=== PATIENT | female | born 1940 | race Caucasian/White ===

== ENCOUNTER 2019-10-09 19:56 | Emergency (ER) | payer MEDICARE, OTHER ==
[~2019-10-09] VITALS: Ht 154.9 cm; Wt 87.6 kg
--- NOTE | 2019-10-09 20:21 | ED Cardiac General ---
History of Present Illness General Chief Complaint: Cardiac/General Problems Stated Complaint: URINARY PROBLEMS History of Present Illness Date Seen by Provider: Oct 09, 2019 Time Seen by Provider: 20:19 Initial Comments This patient is a 79-year-old female presents to the emergency from her increasing weight gain and not feeling well for the past few days. Patient states that starting on August where she thought she was having flulike symptoms but had no fever no cough no congestion. Patient was seen by her PCP due to increasing lower extremity swelling stated she had a normal EKG and he placed her on Lasix but she does continue to have weight gain. Patient denies chest pain. Denies cough denies any significant shortness of breath. Patient states she is fatigued. We'll do medical evaluation treatment is needed. Patient states she believes she is gained about 30 pounds in a month. Patient has 4+ edema to the lower extremities. Timing/Duration: getting worse Modifying Factors: worse with antacids, worse with breathing, worse with coughing, worse with defecting, worse with eating, worse with exercise; improves with lying down; worse with morphine, worse with movement, worse with nitroglycerin, worse with oxygen, worse with palpation, worse with rest, worse with other Allergies and Home Medications Allergies Coded Allergies: Sulfa (Sulfonamide Antibiotics) (Verified Allergy, Unknown, 10/09/19) atorvastatin (Verified Allergy, Unknown, 10/09/19) diltiazem (Verified Allergy, Unknown, 10/09/19) ibuprofen (Verified Allergy, Unknown, 10/09/19) lisinopril (Verified Allergy, Unknown, 10/09/19) losartan (Verified Allergy, Unknown, 10/09/19) hydrocodone (Verified Adverse Reaction, Unknown, 10/09/19) Patient Home Medication List Home Medication List Reviewed: Yes Review of Systems Review of Systems Constitutional: no symptoms reported, see HPI; No chills, No diaphoresis, No dizziness, No fever, No malaise, No weakness, No weight gain, No weight loss, No other EENTM: No No Symptoms Reported, No See HPI, No Blurred Vision, No Double Vi lily, No Eye Pain, No Eye Tearing, No Ear Drainage, No Ear Pain, No Mouth Pain, No Mouth Swelling, No Nose Congestion, No Nose Pain, No Throat Pain, No Throat Swelling, No Other Respiratory: No Symptoms Reported, See HPI; Denies Cough; Orthopnea; Denies Shortness of Air; SOA With Exertion; Denies SOA at Rest, Denies Stridor, Denies Wheezing, Denies Other Cardiovascular: Denies No Symptoms Reported, Denies See HPI, Denies Chest Pain, Denies Edema, Denies Irregular Heart Rate, Denies Lightheadedness, Denies Palpitations, Denies Syncope, Denies Other Gastrointestinal: Denies No Symptoms Reported, Denies See HPI, Denies Abdomen Distended, Denies Abdominal Pain, Denies Blood Streaked Stools, Denies Constipated, Denies Diarrhea, Denies Difficulty Swallowing, Denies Nausea, Denies Poor Appetite, Denies Poor Fluid Intake, Denies Rectal Bleeding, Denies Vomiting, Denies Other Genitourinary: Denies No Symptoms Reported, Denies See HPI, Denies Burning, Denies Discharge, Denies Drainage, Denies Frequency, Denies Flank Pain, Denies Hematuria, Denies Incontinence, Denies Pain, Denies Urgency, Denies Other Musculoskeletal: No no symptoms reported, No see HPI, No back pain, No gout, No joint pain, No joint swelling, No muscle pain, No muscle stiffness, No muscle cramps, No muscle twitching, No muscle weakness, No neck pain, No other All Other Systems Reviewed Negative Unless Noted: Yes Past Bkdhbps-Bbzhlr-Ogurxz Hx Patient Social History Recent Foreign Travel: No Contact w/Someone Who Travel: No Physical Exam Vital Signs Vital Signs - First Documented 10/09/19 20:00 Temp 36.7 Pulse 70 Resp 16 B/P (MAP) 161/90 (113) Pulse Ox 98 O2 Delivery Room Air Capillary Refill : Height, Weight, BMI Height: '" Weight: lbs. oz. kg; BMI Method: General Appearance: No Apparent Distress, WD/WN HEENT: PERRL/EOMI, TMs Normal, Normal ENT Inspection, Pharynx Normal Neck: Full Range of Motion, Normal Inspection, Non Tender Respiratory: Chest Non Tender, Lungs Clear, Normal Breath Sounds, No Accessory Muscle Use, No Respiratory Distress Cardiovascular: Regular Rate, Rhythm, No Edema, No Gallop, No JVD, No Murmur, Normal Peripheral Pulses Extremity: Normal Capillary Refill, Normal Inspection, Normal Range of Motion, Non Tender, No Calf Tenderness, No Pedal Edema, Swelling Progress/Results/Core Measures Results/Orders Lab Results Laboratory Tests Test 10/09/19 20:30 10/09/19 20:37 Range/Units White Blood Count 9.7 4.3-11.0 10^3/uL Red Blood Count 4.55 4.35-5.85 10^6/uL Hemoglobin 14.6 11.5-16.0 G/DL Hematocrit 42 35-52 % Mean Corpuscular Volume 91 80-99 FL Mean Corpuscular Hemoglobin 32 25-34 PG Mean Corpuscular Hemoglobin Concent 35 32-36 G/DL Red Cell Distribution Width 12.7 10.0-14.5 % Platelet Count 189 130-400 10^3/uL Mean Platelet Volume 9.4 7.4-10.4 FL Neutrophils (%) (Auto) 81 H 42-75 % Lymphocytes (%) (Auto) 11 L 12-44 % Monocytes (%) (Auto) 5 0-12 % Eosinophils (%) (Auto) 1 0-10 % Basophils (%) (Auto) 1 0-10 % Neutrophils # (Auto) 7.9 H 1.8-7.8 X 10^3 Lymphocytes # (Auto) 1.1 1.0-4.0 X 10^3 Monocytes # (Auto) 0.5 0.0-1.0 X 10^3 Eosinophils # (Auto) 0.1 0.0-0.3 10^3/uL Basophils # (Auto) 0.1 0.0-0.1 10^3/uL Sodium Level 136 135-145 MMOL/L Potassium Level 4.6 3.6-5.0 MMOL/L Chloride Level 101 98-107 MMOL/L Carbon Dioxide Level 26 21-32 MMOL/L Anion Gap 9 5-14 MMOL/L Blood Urea Nitrogen 28 H 7-18 MG/DL Creatinine 1.38 H 0.60-1.30 MG/DL Estimat Glomerular Filtration Rate 37 BUN/Creatinine Ratio 20 Glucose Level 119 H 70-105 MG/DL Calcium Level 8.2 L 8.5-10.1 MG/DL Corrected Calcium 9.8 8.5-10.1 MG/DL Total Bilirubin < 0.2 0.1-1.0 MG/DL Aspartate Amino Transf (AST/SGOT) 23 5-34 U/L Alanine Aminotransferase (ALT/SGPT) 20 0-55 U/L Alkaline Phosphatase 71 40-136 U/L Troponin I < 0.30 <0.30 NG/ML Pro-B-Type Natriuretic Peptide 874.9 H <75.0 PG/ML Total Protein 5.2 L 6.4-8.2 GM/DL Albumin 2.0 L 3.2-4.5 GM/DL My Orders Orders - JUSTICE FISHER MD Chest 1 View Ap/Pa Only (10/09/19 20:14) Ekg Tracing (10/09/19 20:14) Ed Iv/Invasive Line Start (10/09/19 20:14) Monitor-Rhythm Ecg Trace Only (10/09/19 20:14) Comprehensive Metabolic Panel (10/09/19 20:14) Cbc With Automated Diff (10/09/19 20:14) Troponin I Fs (10/09/19 20:14) Probnp Fs (10/09/19 20:19) Albuterol/Ipra Inhalation Soln (Duoneb I (10/09/19 21:45) Ceftriaxone For Iv Use (Rocephin For I (10/09/19 21:45) Svn Small Volume Nebulizer (10/09/19 21:40) Creatine Kinase Mb (10/09/19 20:30) Ondansetron Injection (Zofran Injectio (10/09/19 22:00) Acetaminophen Tablet/Caplet (Tylenol T (10/09/19 22:00) Medications Given in ED Current Medications Medications Dose Ordered Sig/Rebeca Route Start Time Stop Time Status Last Admin Dose Admin Acetaminophen 650 mg ONCE ONCE PO 10/09/19 22:00 10/09/19 22:01 DC 10/09/19 21:58 650 MG Albuterol/ Ipratropium 3 ml ONCE ONCE INH 10/09/19 21:45 10/09/19 21:46 DC 10/09/19 21:48 3 ML Ceftriaxone Sodium 1000 mg/ Sterile Water 10 ml @ 200 mls/hr ONCE ONCE IV 10/09/19 21:45 10/09/19 21:47 DC 10/09/19 21:48 200 MLS/HR Ondansetron HCl 4 mg ONCE ONCE IVP 10/09/19 22:00 10/09/19 22:01 DC 10/09/19 21:58 4 MG Vital Signs/I&O 10/09/19 20:00 Temp 36.7 Pulse 70 Resp 16 B/P (MAP) 161/90 (113) Pulse Ox 98 O2 Delivery Room Air Progress Progress Note : Time: 22:22 Progress Note Negative for any acute cardiac findings. Chest x-ray suggestive of possible developing a lower lobe pneumonia. Patient feeling was present better after breathing treatment. Vital signs are stable. Blood pressure is much improved down to 101/72. Patient will was given a dose of Rocephin in the emerge from was started on Zithromax patient is to continue all home medications and follow up with her PCP. We'll also give patient Pro Air puff inhaler. Patient states understanding should be discharged Initial ECG Impression Date: Oct 09, 2019 Initial ECG Impression Time: 20:20 Initial ECG Rate: 70 Initial ECG Rhythm: Normal Sinus Initial ECG Intervals: Normal Initial ECG Impression: Normal, Nonspecific Changes Initial ECG Comparisson: No Previous ECG Available Departure Impression Primary Impression: Pneumonia Additional Impression: Swelling of lower extremity Disposition: HOME, SELF-CARE Condition: Stable Departure-Patient Inst. Decision time for Depature: 22:23 Referrals: NO,LOCAL PHYSICIAN (PCP) Primary Care Physician Patient Instructions: Pneumonia, Adult (DC) Add. Discharge Instructions: Cool mist humidified air. Finish all medications as prescribed. Elevate lower extremities to help reduce swelling continue chronic medications. Zithromax is prescribed for pneumonia. Pro Air puff inhaler as instructed. Follow-up with PCP in 2-3 days. All discharge instructions reviewed with patient and/or family. Voiced understanding. Scripts Albuterol Sulfate (Proventil Hfa) 6.7 Gm Hfa.aer.ad 2 PUFF INH Q6H for SHORTNESS OF BREATH for 7 Days, #1 EACH 0 Refills Prov: JUSTICE FISHER MD 10/09/19 Azithromycin (Zithromax) 250 Mg Tablet 250 MG PO UD, #6 TAB TAKE 2 TABLETS TODAY, THEN TAKE 1 TABLET DAILY FOR 4 MORE DAYS Prov: JUSTICE FISHER MD 10/09/19 JUSTICE FISHER MD Oct 09, 2019 20:21
[2019-10-09 20:44] LABS: HEMATOCRIT 42 % (35-52); HEMOGLOBIN 14.6 G/DL (11.5-16.0); MEAN CORPUSCULAR HEMOGLOBIN 32 PG (25-34); MEAN CORPUSCULAR HGB CONC 35 G/DL (32-36); MEAN CORPUSCULAR VOLUME 91 FL (80-99); MEAN PLATELET VOLUME 9.4 FL (7.4-10.4); PLATELET COUNT 189 10^3/uL (130-400); RED CELL DISTRIBUTION WIDTH 12.7 % (10.0-14.5); WHITE BLOOD COUNT 9.7 10^3/uL (4.3-11.0)
[2019-10-09 20:45] LABS: BASOPHILS # (AUTO) 0.1 10^3/uL (0.0-0.1); BASOPHILS % (AUTO) 1 % (0-10); EOSINOPHILS # (AUTO) 0.1 10^3/uL (0.0-0.3); EOSINOPHILS % (AUTO) 1 % (0-10); LYMPHOCYTES # (AUTO) 1.1 X 10^3 (1.0-4.0); LYMPHOCYTES % (AUTO) 11 % (12-44); MONOCYTES # (AUTO) 0.5 X 10^3 (0.0-1.0); MONOCYTES % (AUTO) 5 % (0-12); NEUTROPHILS # (AUTO) 7.9 X 10^3 (1.8-7.8); NEUTROPHILS % (AUTO) 81 % (42-75)
[2019-10-09 21:01] LABS: SODIUM 136 MMOL/L (135-145)
[2019-10-09 21:02] LABS: ALANINE AMINOTRANSFERASE 20 U/L (0-55); ALKALINE PHOSPHATASE 71 U/L (40-136); BILIRUBIN,TOTAL < 0.2 MG/DL (0.1-1.0); CALCIUM 8.2 MG/DL (8.5-10.1); CARBON DIOXIDE 26 MMOL/L (21-32); CHLORIDE 101 MMOL/L (98-107); GLUCOSE 119 MG/DL (70-105); POTASSIUM 4.6 MMOL/L (3.6-5.0); TOTAL PROTEIN 5.2 GM/DL (6.4-8.2)
[2019-10-09 21:03] LABS: BUN/CREATININE RATIO 20; CREATININE SERUM 1.38 MG/DL (0.60-1.30); GFR ESTIMATED 37
--- NOTE | 2019-10-09 21:24 | Diagnostic Imaging Report ---
EXAMINATION: Single view of the chest was obtained. INDICATION: Shortness of breath with hypertension and lower extremity swelling. FINDINGS: Heart size appears within normal limits for AP technique. The central pulmonary vascularity appears appropriate. There is no dense alveolar consolidation. There appears to be some patchy nodular infiltrate at the right base. Early developing pneumonia could not be excluded. This should be followed to resolution. There are no current findings to suggest significant edema or evidence of a significant effusion. IMPRESSION: 1. Apparent patchy nodular infiltrates at the right base. This may reflect developing pneumonia. This should be followed to resolution. 2. Heart size appears appropriate without current evidence of significant edema or failure. Dictated by: Dictated on workstation # [id number]
[2019-10-09] MEDS ORDERED: cefTRIAXone FOR IV USE 1,000 MG in WATER (STERILE) FOR INJECTION 10 ML IV ONE (21:45)
[2019-10-09] MEDS ORDERED: RT-ALBUTEROL/IPRATROPIUM 3 ML (DUONEB) VIAL INH ONE (21:45)
[2019-10-09] MEDS ORDERED: ACETAMINOPHEN 325 MG TABLET PO ONE (22:00)
[2019-10-09] MEDS ORDERED: ONDANSETRON 4 MG/2 ML (SDV) Z0FRAN IVP ONE (22:00)
[2019-10-09] MEDS ORDERED: AZIT250T PO (22:25)
[2019-10-09] MEDS ORDERED: RT-ALBUINH INH (22:25)
[2019-10-09 22:40] VITALS: BP 135/85
== END 2019-10-09 22:40 | disposition home or self-care (01) ==
LOC: EDUNIT# 19:56 → ER FS 20:01
DX: J18.9 Pneumonia, unspecified organism (principal); M79.89 Other specified soft tissue disorders; Z88.2 Allergy status to sulfonamides; Z88.8 Allergy status to other drugs, medicaments and biological substances; Z88.5 Allergy status to narcotic agent
CPT/HCPCS: 36415; 71045; 80053; 82553; 83880; 84484; 85025; 93005; 93041

== ENCOUNTER → 2021-04-03 | Outpatient (CLI) | payer MEDICARE, OTHER ==
[~2021-04-03] MED LIST: AZIT250T PO; RT-ALBUINH INH
--- NOTE | 2021-04-03 18:42 | Diagnostic Imaging Report ---
INDICATION: Left elbow pain COMPARISON: None available. TECHNIQUE: 3 radiographs of the left elbow dated 04/03/2021 FINDINGS: Tiny well-corticated calcifications are seen adjacent to the lateral epicondyle. No acute fracture or dislocation. No destructive osseous process. No elbow joint effusion. IMPRESSION: No acute osseous abnormality. Minimal calcifications adjacent to the lateral epicondyle felt to relate to a sequelae of prior lateral epicondylitis. Dictated by: Dictated on workstation # [id number]
== END ==
LOC: RAD FS 16:47
PROVIDERS: ATTEND Orthopaedic Surgery
DX: M25.522 Pain in left elbow (principal)
CPT/HCPCS: 73080

== ENCOUNTER 2021-11-27 09:59 | Emergency (ER) | payer MEDICARE, OTHER ==
[~2021-11-27] VITALS: Ht 157 cm; Wt 73.0 kg
--- NOTE | 2021-11-27 10:04 | ED GI ---
General Stated Complaint: NAUSEA History of Present Illness Date Seen by Provider: November 27, 2021 Time Seen by Provider: 10:03 Initial Comments 81-year-old female who presents with some generalized malaise, nausea. Patient reports that about a week ago she got GI bug had some nausea vomiting diarrhea. Both her and her got it. That he is gotten over it. However she is just cannot get over and continueto be run down. Patient had some mild nausea and felt like she needed to vomit but was unable to this morning. She is no longer having diarrhea. She denies any fever, chills, shortness of breath, chest pain. She does have some very minimal epigastric/upper abdomen pain just prior to when she is feels like she needs to vomit or vomits. Patient reports that she was tested for both COVID and influenza not last week and they were negative. She was seen in urgent care 3 days ago and given Zofran. She took a Zofran about 30 minutes prior to arrival Allergies and Home Medications Allergies Coded Allergies: Sulfa (Sulfonamide Antibiotics) (Verified Allergy, Unknown, 10/09/19) atorvastatin (Verified Allergy, Unknown, 10/09/19) diltiazem (Verified Allergy, Unknown, 10/09/19) ibuprofen (Verified Allergy, Unknown, 10/09/19) lisinopril (Verified Allergy, Unknown, 10/09/19) losartan (Verified Allergy, Unknown, 10/09/19) hydrocodone (Verified Adverse Reaction, Unknown, 10/09/19) Patient Home Medication List Home Medication List Reviewed: Yes Albuterol Sulfate (Proventil Hfa) 6.7 Gm Hfa.aer.ad, 2 PUFF INH Q6H Prescribed by: JUSTICE FISHER on 10/09/192224 Azithromycin (Zithromax) 250 Mg Tablet, 250 MG PO UD Prescribed by: JUSTICE FISHER on 10/09/192224 Cephalexin (Cephalexin) 500 Mg Tablet, 500 MG PO QID Prescribed by: CLARA TEE on 11/27/21 1127 Review of Systems Review of Systems Constitutional: No chills, No fever; malaise Respiratory: Denies Cough, Denies Shortness of Air Cardiovascular: Denies Chest Pain, Denies Lightheadedness Gastrointestinal: See HPI, Abdominal Pain (Minimal), Nausea, Vomiting Genitourinary: No Symptoms Reported Musculoskeletal: no symptoms reported Skin: no symptoms reported Psychiatric/Neurological: No Symptoms Reported Endocrine: No Symptoms Reported Hematologic/Lymphatic: No Symptoms Reported Past Dihtbkm-Zduupt-Mdoopy Hx Seasonal Allergies Seasonal Allergies: Yes Past Medical History Surgeries: Yes (NAVAL HERNIA REPAIR, BUNION SURGERY, KNEE REPLACEMENT) Gallbladder, Hysterectomy, Tonsillectomy Respiratory: Yes Asthma Cardiac: Yes Hypertension [employer] History: Hysterectomy Gastrointestinal: Yes Gall Bladder Disease Musculoskeletal: Yes Arthritis Endocrine: No Cancer: No Physical Exam Vital Signs Vital Signs - First Documented 11/27/21 10:21 Temp 36.2 Pulse 61 Resp 10 B/P (MAP) 115/59 (77) Pulse Ox 100 O2 Delivery Room Air Capillary Refill : Height/Weight/BMI Height: '" Weight: lbs. oz. kg; 36.00 BMI Method: General Appearance: WD/WN, no apparent distress Neck: full range of motion, supple Respiratory: normal breath sounds, no respiratory distress Cardiovascular: normal peripheral pulses, regular rate, rhythm, no edema Gastrointestinal: soft; No guarding, No rebound, No tenderness Neurologic/Psychiatric: no motor/sensory deficits, alert, normal mood/affect, oriented x 3 Skin: normal color, warm/dry Progress/Results/Core Measures Results/Orders Lab Results Laboratory Tests Test 11/27/21 10:06 11/27/21 10:11 Range/Units Urine Color YELLOW Urine Clarity SLIGHTLY CLOUDY Urine pH 6.0 5-9 Urine Specific Lee 1.015 L 1.016-1.022 Urine Protein NEGATIVE NEGATIVE Urine Glucose (UA) NEGATIVE NEGATIVE Urine Ketones NEGATIVE NEGATIVE Urine Nitrite NEGATIVE NEGATIVE Urine Bilirubin NEGATIVE NEGATIVE Urine Urobilinogen 0.2 < = 1.0 MG/DL Urine Leukocyte Esterase 2+ H NEGATIVE Urine RBC (Auto) NEGATIVE NEGATIVE Urine RBC NONE /HPF Urine WBC 10-25 H /HPF Urine Squamous Epithelial Cells 2-5 /HPF Urine Renal Epithelial Cells 0-2 /HPF Urine Crystals NONE /LPF Urine Bacteria FEW H /HPF Urine Casts NONE /LPF Urine Mucus NEGATIVE /LPF Urine Culture Indicated YES White Blood Count 6.3 4.3-11.0 10^3/uL Red Blood Count 4.55 3.80-5.11 10^6/uL Hemoglobin 14.2 11.5-16.0 g/dL Hematocrit 41 35-52 % Mean Corpuscular Volume 90 80-99 fL Mean Corpuscular Hemoglobin 31 25-34 pg Mean Corpuscular Hemoglobin Concent 35 32-36 g/dL Red Cell Distribution Width 12.7 10.0-14.5 % Platelet Count 169 130-400 10^3/uL Mean Platelet Volume 10.0 9.0-12.2 fL Immature Granulocyte % (Auto) 0 % Neutrophils (%) (Auto) 50 42-75 % Lymphocytes (%) (Auto) 38 12-44 % Monocytes (%) (Auto) 10 0-12 % Eosinophils (%) (Auto) 1 0-10 % Basophils (%) (Auto) 1 0-10 % Neutrophils # (Auto) 3.2 1.8-7.8 10^3/uL Lymphocytes # (Auto) 2.4 1.0-4.0 10^3/uL Monocytes # (Auto) 0.6 0.0-1.0 10^3/uL Eosinophils # (Auto) 0.1 0.0-0.3 10^3/uL Basophils # (Auto) 0.0 0.0-0.1 10^3/uL Immature Granulocyte # (Auto) 0.0 0.0-0.1 10^3/uL Neutrophils % (Manual) 53 % Lymphocytes % (Manual) 23 % Monocytes % (Manual) 9 % Eosinophils % (Manual) 2 % Basophils % (Manual) 1 % Band Neutrophils 2 % Atypical Lymphocytes 10 % Platelet Estimate NORMAL Blood Morphology Comment NORMAL Sodium Level 135 135-145 MMOL/L Potassium Level 4.5 3.6-5.0 MMOL/L Chloride Level 98 98-107 MMOL/L Carbon Dioxide Level 25 21-32 MMOL/L Anion Gap 12 5-14 MMOL/L Blood Urea Nitrogen 39 H 7-18 MG/DL Creatinine 1.55 H 0.60-1.30 MG/DL Estimat Glomerular Filtration Rate 34 BUN/Creatinine Ratio 25 Glucose Level 99 70-105 MG/DL Calcium Level 9.4 8.5-10.1 MG/DL Corrected Calcium 9.2 8.5-10.1 MG/DL Total Bilirubin 0.5 0.1-1.0 MG/DL Aspartate Amino Transf (AST/SGOT) 53 H 5-34 U/L Alanine Aminotransferase (ALT/SGPT) 125 H 0-55 U/L Alkaline Phosphatase 183 H 40-136 U/L C-Reactive Protein < 0.30 <0.50 MG/DL Total Protein 7.5 6.4-8.2 GM/DL Albumin 4.3 3.2-4.5 GM/DL Lipase 47 8-78 U/L My Orders Orders - CLARA TEE L DO Urinalysis (11/27/21 10:16) Acute Abd Series (11/27/21 10:20) Cbc With Automated Diff (11/27/21 10:20) Comprehensive Metabolic Panel (11/27/21 10:20) Lipase (11/27/21 10:20) Ua Culture If Indicated (11/27/21 10:20) Crp Fs (11/27/21 10:20) Metoclopramide Injection (Reglan Injecti (11/27/21 10:20) Lactated Ringers (Lr 1000 Ml Iv Solution (11/27/21 10:20) Manual Differential (11/27/21 10:11) Urine Culture (11/27/21 10:06) Vital Signs/I&O 11/27/21 10:21 Temp 36.2 Pulse 61 Resp 10 B/P (MAP) 115/59 (77) Pulse Ox 100 O2 Delivery Room Air Progress Progress Note : Progress Note Patient is feeling better following her IV fluids. Patient does have a urine that is consistent with an acute cystitis. She thought that she might have a UTI. X-ray shows mild constipation. Patient's labs show some mild elevated liver enzymes likely related to her recent gastroenteritis. She does not have any right upper quadrant pain upon palpation to indicate need for further urgent management. She should follow-up with her primary care provider if symptoms or not improving over the next couple days or continue to worsen. Patient stable a nd discharged home Diagnostic Imaging Diagonstic Imaging: Xray Plain Films/CT/US/NM/MRI: abdomen Comments Date of Exam:11/27/21 ACUTE ABD SERIES INDICATION: Nausea, vomiting, abdominal pain. COMPARISON: None. FINDINGS: Acute abdominal series demonstrates mild constipation without obstruction, ileus, or free air. The chest is normal. Thoracolumbar scoliosis is noted. Cholecystectomy clips are present. IMPRESSION: Mild constipation. Reviewed: Reviewed by Me, Reviewed/Discussed Departure Impression Primary Impression: Acute cystitis without hematuria Disposition: HOME, SELF-CARE Condition: Stable Departure-Patient Inst. Referrals: REMY OVALLE MD (PCP) Primary Care Physician Patient Instructions: Constipation, Adult (DC), Urinary Tract Infections in Adults Add. Discharge Instructions: Encourage you to drink plenty of fluid Use your already prescribed Zofran as Follow-up with your primary care provider and 5 to 7 days for recheck of your urine Scripts Cephalexin (Cephalexin) 500 Mg Tablet 500 MG PO QID, #20 TAB 0 Refills Prov: CLARA TEE DO 11/27/21 CLARA TEE DO November 27, 2021 10:04
[2021-11-27] MEDS ORDERED: METOCLOPRAMIDE INJ 10 MG/2 ML (REGLAN) IVP STA (10:20)
[2021-11-27] MEDS ORDERED: LACTATED RINGERS 1,000 ML IV STA (10:20)
[2021-11-27 10:26] LABS: BASOPHILS % (AUTO) 1 % (0-10); EOSINOPHILS # (AUTO) 0.1 10^3/uL (0.0-0.3); EOSINOPHILS % (AUTO) 1 % (0-10); HEMATOCRIT 41 % (35-52); HEMOGLOBIN 14.2 g/dL (11.5-16.0); LYMPHOCYTES # (AUTO) 2.4 10^3/uL (1.0-4.0); LYMPHOCYTES % (AUTO) 38 % (12-44); MEAN CORPUSCULAR HEMOGLOBIN 31 pg (25-34); MEAN CORPUSCULAR HGB CONC 35 g/dL (32-36); MEAN CORPUSCULAR VOLUME 90 fL (80-99); MONOCYTES # (AUTO) 0.6 10^3/uL (0.0-1.0); MONOCYTES % (AUTO) 10 % (0-12); NEUTROPHILS # (AUTO) 3.2 10^3/uL (1.8-7.8); NEUTROPHILS % (AUTO) 50 % (42-75); PLATELET COUNT 169 10^3/uL (130-400); WHITE BLOOD COUNT 6.3 10^3/uL (4.3-11.0)
[2021-11-27 10:26] LABS: BILIRUBIN,URINE NEGATIVE (NEGATIVE); COLOR,URINE YELLOW; GLUCOSE, URINE (UA) NEGATIVE (NEGATIVE); KETONES,URINE NEGATIVE (NEGATIVE); LEUKOCYTE ESTERASE ,URINE 2+ (NEGATIVE); NITRITE,URINE NEGATIVE (NEGATIVE); PROTEIN,URINE NEGATIVE (NEGATIVE)
--- NOTE | 2021-11-27 10:40 | Diagnostic Imaging Report ---
INDICATION: Nausea, vomiting, abdominal pain. COMPARISON: None. FINDINGS: Acute abdominal series demonstrates mild constipation without obstruction, ileus, or free air. The chest is normal. Thoracolumbar scoliosis is noted. Cholecystectomy clips are present. IMPRESSION: Mild constipation. Dictated by: Dictated on workstation # [id number]
[2021-11-27 10:46] LABS: BACTERIA,URINE FEW /HPF; RENAL EPITHELIAL CELLS,URINE 0-2 /HPF
[2021-11-27 10:47] LABS: CLARITY,URINE SLIGHTLY CLOUDY
[2021-11-27 10:54] LABS: ATYPICAL LYMPHOCYTES 10 %; BAND NEUTROPHILS 2 %; BASOPHILS % (MANUAL) 1 %; EOSINOPHILS % (MANUAL) 2 %; LYMPHOCYTES % (MANUAL) 23 %; MONOCYTES % (MANUAL) 9 %; NEUTROPHILS % (MANUAL) 53 %
[2021-11-27 10:55] LABS: PLATELET ESTIMATE NORMAL; RBC MORPH NORMAL
[2021-11-27 10:58] LABS: ALANINE AMINOTRANSFERASE 125 U/L (0-55); ALBUMIN 4.3 GM/DL (3.2-4.5); ALKALINE PHOSPHATASE 183 U/L (40-136); BILIRUBIN,TOTAL 0.5 MG/DL (0.1-1.0); BUN/CREATININE RATIO 25; CALCIUM 9.4 MG/DL (8.5-10.1); CARBON DIOXIDE 25 MMOL/L (21-32); CHLORIDE 98 MMOL/L (98-107); CREATININE SERUM 1.55 MG/DL (0.60-1.30); GFR ESTIMATED 34; GLUCOSE 99 MG/DL (70-105); POTASSIUM 4.5 MMOL/L (3.6-5.0); SODIUM 135 MMOL/L (135-145); TOTAL PROTEIN 7.5 GM/DL (6.4-8.2)
[2021-11-27 11:16] LABS: LIPASE 47 U/L (8-78)
[2021-11-27] MEDS ORDERED: CEPH500T PO (11:27)
[2021-11-27 11:28] VITALS: BP 115/59
== END 2021-11-27 11:30 | disposition home or self-care (01) ==
LOC: EDUNIT# 09:59 → ER FS 10:01
DX: N30.00 Acute cystitis without hematuria (principal); R74.01 Elevation of levels of liver transaminase levels; Z87.19 Personal history of other diseases of the digestive system
CPT/HCPCS: 36415; 74022; 80053; 81000; 83690; 85007; 85027; 86141; 87088

== ENCOUNTER → 2021-12-04 | Outpatient (CLI) | payer MEDICARE, OTHER ==
[~2021-12-04] MED LIST changes: +CEPH500T PO
[2021-12-04 19:04] LABS: BILIRUBIN,URINE NEGATIVE (NEGATIVE); CLARITY,URINE CLEAR; COLOR,URINE YELLOW; GLUCOSE, URINE (UA) NEGATIVE (NEGATIVE); KETONES,URINE NEGATIVE (NEGATIVE); LEUKOCYTE ESTERASE ,URINE TRACE (NEGATIVE); NITRITE,URINE NEGATIVE (NEGATIVE); PROTEIN,URINE NEGATIVE (NEGATIVE)
[2021-12-04 19:09] LABS: BACTERIA,URINE NEGATIVE /HPF; SQUAMOUS EPITHELIAL CELL,UR 0-2 /HPF; WBC,URINE 0-2 /HPF
== END ==
LOC: PVFS 18:55
PROVIDERS: ATTEND Family Medicine
DX: N39.0 Urinary tract infection, site not specified (principal)
CPT/HCPCS: 81000